=== PATIENT | male | born 1995 | race Caucasian/White ===

== ENCOUNTER → 2025-06-02 14:50 | Outpatient (BNVA) | payer OTHER, SELFPAY | PROVIDERS: Visit Provider Physician Assistant Medical | DX: S67.192A Crushing injury of right middle finger, initial encounter (principal); S62.662A Nondisplaced fracture of distal phalanx of right middle finger, initial encounter for closed fracture; W31.89XA Contact with other specified machinery, initial encounter | CPT/HCPCS: 99203 ==

== ENCOUNTER → 2025-06-18 14:46 | Outpatient (BNVA) | payer OTHER, SELFPAY | PROVIDERS: Visit Provider Emergency Medicine | DX: S67.192D Crushing injury of right middle finger, subsequent encounter (principal); S62.662D Nondisplaced fracture of distal phalanx of right middle finger, subsequent encounter for fracture with routine healing; W31.89XD Contact with other specified machinery, subsequent encounter | CPT/HCPCS: 99213 ==

== ENCOUNTER 2025-07-08 11:44 | Outpatient (REF) | payer OTHER, SELFPAY ==
--- NOTE | ~2025-07-08 | XR_ITS ---
EXAMINATION: XR HAND, RIGHT CLINICAL INFORMATION: M79.641 - Pain in right hand COMPARISON: None available. TECHNIQUE: PA, lateral, and oblique views of the right hand. FINDINGS: There is a comminuted minimally displaced fracture of the distal tuft of the distal phalanx, third digit. There is associated soft tissue swelling. No radiopaque foreign body seen. There is no additional fracture identified. There is otherwise normal alignment. Joint spaces are preserved. XR/XR hand RT min 3V IMPRESSION: Comminuted minimally displaced fracture of the distal tuft of the distal phalanx of the third digit. Electronically signed by: Philippe Arciniega MD 07/08/2025 02:37 PM EST
== END 2025-07-08 11:45 | disposition home or self-care (01) ==
LOC: HO.HOSX 11:44
PROVIDERS: Visit Provider Orthopaedic Surgery
DX: S62.632A Displaced fracture of distal phalanx of right middle finger, initial encounter for closed fracture (principal); W23.0XXA Caught, crushed, jammed, or pinched between moving objects, initial encounter; Y99.0 Civilian activity done for income or pay; Y92.89 Other specified places as the place of occurrence of the external cause; Y93.L9 Activity, other outdoor activity
CPT/HCPCS: 73130

== ENCOUNTER 2025-07-08 14:12 | Outpatient (AMB) | payer OTHER, SELFPAY ==
--- NOTE | 2025-07-08 14:53 | MHC.OFFVIS ---
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 Patient seen by [facility] after a steel plate was dropped on his finger, he was provided with a finger splint and referred to orthopedics. At today's visit he states that he discontinue use of finger splint. He feels his finger is not healing right at his DIP, stating not really any pain. He complains of a tingling sensation at the tip of his finger, denies numbness. His current work restrictions are to not lift over 20 lbs with his right hand. Allergies cat dander (cats) Allergy (Verified 07/08/25 14:56) itchy throat HPI HPI FC-Crushing injury to right middle finger with dis: Details: Gary is a 30 year old right hand dominant man who presents for a right middle finger distal phalanx fracture, from a crush injury at work, DOI: 05/23/25. He crushed his finger underneath a steel plate at work. He complains of his finger not feeling right and he feels his finger has healed crooked. He does not really complain of pain PFSH Social History (Updated 07/08/25 @ 14:56 by Vanessa Zavaleta [facility] Patient Tobacco Use Status: Current everyday Tobacco user e-Cigarette/Vaping Use: Currently Using Review of Systems Const All systems reviewed & are unremarkable except as noted in HPI and below Physical Exam Vital Signs: BMI result Body Mass Index 18.8 Const General: cooperative, healthy appearing and no acute distress Orientation/consciousness: patient oriented x3 HEENT Head: Yes normocephalic and Yes atraumatic Eyes EOM: EOMs intact bilaterally Resp Effort & Inspection: normal respiratory effort and able to speak in complete sentences Cardio Jugular venous distension: no JVD Skin General skin exam: turgor normal Rashes: no rashes Neuro General: patient oriented x3 Extrem Other: Evaluation of Right Upper Extremity: The patient is alert, oriented, and in no acute distress Neuro: Not quite normal sensation to the tip of the middle finger. Normal sensation to all other digits Vascular: Cap refill brisk ROM: He can make a fist and extend all his digits, good flexion & extension at the MCP PIP and D IP joints The patient appreciates some mild supination of the middle finger when held in full extension, but the finger has good opposition to the thumb. Any supination is mild. No rotational mal-alignment in flexion Skin: No lacerations or abrasions. General: No Ecchymosis. No Erythema or evidence of infection. Middle finger subungual hematoma which the patient reports is growing out Radiographs: 3 views of the right hand were taken and viewed by me today in clinic. They show a middle finger distal phalanx tuft fracture with satisfactory fracture alignment and good evidence of interval bony healing. Psych Appearance: grossly normal Affect: normal affect Attitude: cooperative Assessment & Plan Assessment & Plan (1) Closed fracture of tuft of distal phalanx of right middle finger: Code(s): S62.632A - Displaced fracture of distal phalanx of right middle finger, initial encounter for closed fracture Category: Medical Plan Assessment & Plan: 1. Right middle finger distal phalanx tuft fracture, comminuted From a crush injury, DOI: 05/23/25 This is a workplace injury He was first seen by us for this injury: 07/08/25 I educated him about this condition This was managed conservatively in a splint No intervention indicated, he is healing well He can discontinue his splint at this time. 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 He was given a note to continue on light duty, with a 15lb weight limit with his RUE for the next 3 weeks, then resume full duty He can follow up prn Scribed for Suki Garner MD by Sai Browning, medical coder, on 07/08/25 at 3:05 PM, EST. Orders: Orders XR hand RT min 3V Today M79.641 - Pain in right hand Coding Level of Care Code New Pt Level 3 (63046) Diagnoses Closed fracture of tuft of distal phalanx of right middle finger S62.632A
[2025-07-08 14:57] VITALS: BMI 18.8
== END 2025-07-08 15:17 | disposition home or self-care (01) ==
LOC: HO.HOS 14:13
PROVIDERS: Visit Provider Orthopaedic Surgery
DX: S62.632A Displaced fracture of distal phalanx of right middle finger, initial encounter for closed fracture (principal)
CPT/HCPCS: 99203

== ENCOUNTER → 2025-07-08 14:14 | Outpatient (BNV) | payer OTHER, SELFPAY | PROVIDERS: Visit Provider Radiology Diagnostic Radiology | DX: S62.630A Displaced fracture of distal phalanx of right index finger, initial encounter for closed fracture (principal) | CPT/HCPCS: 73130 ==